=== PATIENT | female | born 1985 | race Caucasian/White ===

== ENCOUNTER 2021-01-12 20:38 | Emergency (ER) | payer OTHER, SELFPAY ==
[2021-01-12 21:06] VITALS: BP 105/57; PULSE 73; RESP 18; TEMP 36.7; O2SAT 98; BMI 21.4
[2021-01-12 21:48] LABS: Glucose Urine UA NEG (NEG); Leukocyte Esterase Urine TRACE (NEG); Nitrite Urine POS (NEG); Specific Gravity - Urine 1.025 (1.005-1.025); UACC Culture Trigger YES; Urine Blood 3+ (NEG); Urine Ketones NEG (NEG); Urine Protein 2+ MG/DL (NEG-TRACE)
[2021-01-12 21:53] LABS: Appearance Urine TURBID; Color Urine RED
[2021-01-12 22:21] LABS: Bacteria Urine 2+ /LPF; Squamous Epithelial Cell Urine TRACE /LPF
--- NOTE | 2021-01-13 00:10 | ED_ITS ---
HPI - Female Genitourinary General Chief complaint: Urogenital-Female Stated complaint: uti? Time Seen by Provider: 01/13/21 00:10 Source: patient Mode of arrival: ambulatory History of Present Illness HPI Narrative: patient is a 35-year-old female no significant past medical history who states she had sexual intercourse with a new partner [address] [facility]. She states she also has had multiple yeast infections recently which she has been treating with Diflucan but they are not going away. She states she has pain with urination, blood in her urine but denies any fevers. She is worried about having a sexually transmitted disease, she has not been tested recently for any and has had 2 partners in the last couple of weeks. Related Data Previous Rx's Medication Instructions Recorded doxycycline hyclate 100 mg PO BID 7 Days #14 tab 01/13/21 nitrofurantoin monohyd/m-cryst 100 mg PO Q12H 5 Days #10 cap 01/13/21 [Macrobid] Allergies Allergy/AdvReac Type Severity Reaction Status Date / Time No Known Allergies Allergy Unknown Verified 01/12/21 21:06 Review of Systems Review of Systems: Yes all other systems are reviewed and are negative [facility] Past Medical History Surgical History Tubal ligation status Social History Social History Advance Directives: No Advance Directives Information Provided: No Patient : No Physical Exam Vital Signs: Vital Signs: Last Vital Signs Temp 98.0 F 01/12/21 21:06 Pulse 73 01/12/21 21:06 Resp 18 01/12/21 21:06 BP 105/57 L 01/12/21 21:06 Pulse Ox 98 01/12/21 21:06 Body Mass Index 21.4 Const: General: cooperative, healthy appearing and comfortable Nutritional Appearance: average body habitus Orientation/consciousness: patient oriented x3 Limitations: no limitations Eyes: General: appearance normal, both eyes and all related structures Resp: Effort & Inspection: normal respiratory effort and able to speak in complete sentences GI: Inspection: Yes normal to inspection Palpation (GI): Soft to palpation and Tenderness to palpation present (GI) suprapubicly Neuro: General: patient oriented x3 Extrem: General: Yes normal to inspection Course Course Course Narrative: patient is a 35-year-old female no significant past medical history who states she had sexual intercourse with a new partner [address] [facility]. Patient's urine is positive for infection, will also get bacterial vaginosis panel, gonorrhea chlamydia and treat for gonorrhea and chlamydia. Rx for doxy sent to patient's pharmacy MDM - Female Genitourinary Lab Data Labs: Lab Results 01/12/21 Range/Units 21:26 Urine Color RED Urine Appearance TURBID Urine pH 6.0 (5.0-8.0) Ur Specific [place] 1.025 (1.005-1.025) Urine Protein 2+ H (NEG-TRACE) MG/DL Urine Glucose (UA) NEG (NEG) MG/DL Urine Ketones NEG (NEG) MG/DL Urine Blood 3+ H (NEG) Urine Nitrite POS H (NEG) Ur Leukocyte Esterase TRACE H (NEG) Urine RBC 76-150 H (0) /HPF Urine WBC 5-9 H (0-4) /HPF Ur Squamous Epith Cells TRACE /LPF Urine Bacteria 2+ /LPF Discharge Plan Discharge Clinical Impression: Urinary tract infection Qualifiers: Urinary tract infection type: acute cystitis Hematuria presence: with hematuria Qualified Code(s): N30.01 - Acute cystitis with hematuria Patient Disposition: Home, Self-Care Instructions: Sexually Transmitted Diseases (ED), Urinary Tract Infection in Women (ED) Additional Instructions: have tested positive for urinary tract infection, I have given your 1st dose of antibiotics in the emergency department, please pick and shovel man the remainder of your antibiotics at her pharmacy tomorrow morning. You have also been tested for bacterial vaginosis, yeast, trichimoniasis, gonorrhea, chlamydia and have been treated for gonorrhea. I have sent a prescription for doxycycline for a chlamydia infection, please take this over the pharmacy and take it for the next 7 days. Your test for bacterial vaginosis, yeast, trichomoniasis, gonorrhea and chlamydia are pending. If the results and a positive test, we will call you. If you test positive for gonorrhea or chlamydia, you will want to abstain from any sexual activity for the next 30 days. At the end of 30 days, you will want to be tested again to be sure you have cleared the disease. All of your partners to get tested for these diseases as well, again this is only if you test positive. Prescriptions: New doxycycline hyclate 100 mg tablet 100 mg PO BID 7 Days Qty: 14 RF: 0 nitrofurantoin monohyd/m-cryst [Macrobid] 100 mg capsule 100 mg PO Q12H 5 Days Qty: 10 RF: 0
[2021-01-13] MEDS: cefTRIAXone sodium 500 MG, Lidocaine HCl 1 % MPF 1 ML IM (00:30)
[2021-01-13] MEDS: Nitrofurantoin Monohyd/M-Cryst 100 MG CAPSULE PO (00:30)
[2021-01-13 04:07] LABS: CT PCR NOT DETECTED (Not Detect.); NG PCR NOT DETECTED (Not Detect.)
[2021-01-13 09:27] LABS: BV Int Neg Control Negative (Negative); BV Int Pos Control Positive (Positive)
== END 2021-01-13 01:07 | disposition home or self-care (01) ==
PROVIDERS: Physician Assistant; Emergency Provider Internal Medicine; PCP Internal Medicine
DX: N30.01 Acute cystitis with hematuria (principal)
CPT/HCPCS: 81001; 81003; 87086; 87088; 87186; 87480; 87491; 87510; 87591; 87660; 96372; 99284; J0696

== ENCOUNTER 2023-01-14 08:39 | Outpatient (RCR) | payer OTHER, SELFPAY | END 2023-01-14 23:59 | disposition home or self-care (01) | LOC: HO.PHPA 08:39 | PROVIDERS: Visit Provider Psychiatry & Neurology Psychiatry | DX: F60.3 Borderline personality disorder (principal) ==

== ENCOUNTER 2023-02-10 14:26 | Emergency (ER) | payer OTHER, SELFPAY ==
--- NOTE | ~2023-02-10 | XR_ITS ---
EXAMINATION: XR chest 2V CLINICAL INFORMATION: Reason for Exam fall, pain COMPARISON: No prior chest x-ray available in our system for comparison at the time of this dictation. TECHNIQUE: XR chest 2V Lungs and Michelle: Both lungs are clear. Pleura: Normal. Costophrenic angles are sharp. No pneumothorax. Heart: The heart is normal in size. Mediastinum: The mediastinum is within normal limits.. Bones: Skeletal structures included are normal for patient's age. XR/XR chest 2V IMPRESSION: Normal chest x-ray.
--- NOTE | ~2023-02-10 | CT_ITS ---
EXAMINATION: CT HEAD WITHOUT CONTRAST CLINICAL INFORMATION: Status post fall with loss of consciousness. COMPARISON: None available. TECHNIQUE: Contiguous axial imaging was performed from the skull base to vertex without intravenous administration of contrast. Coronal and sagittal reformatted images were obtained. This CT examination was performed using dose optimization techniques as appropriate, variously including the following: *Automated exposure control *Adjustment of mA and/or kV according to patient size (this includes techniques or standardized protocols for targeted exams where dose is matched to indication/reason for exam; i.e. extremities or head) *Use of iterative reconstruction technique DLP: 537.89 mGy-cm FINDINGS: The cortical sulci are normal. The lateral ventricles are symmetrical. The third and fourth ventricles are in their normal midline position. The basilar and prepontine cisterns are unremarkable. There is no acute intra or extracerebral abnormality. There is no mass effect or midline shift. Sections through the bony calvarium are unremarkable. The paranasal sinuses show very small left and small right interpolar fluid levels in the sphenoid sinuses. The remainder the visualized paranasal sinuses are clear. The bony orbits and orbital contents are unremarkable. CT/CT head/brain wo IV con IMPRESSION: No acute intracranial pathology.
--- NOTE | ~2023-02-10 | CT_ITS ---
EXAMINATION: CT CERVICAL SPINE WITHOUT CONTRAST CLINICAL INFORMATION: Neck pain status post fall yesterday. COMPARISON: Cervical spine radiographs dated 02/21/2007. TECHNIQUE: Multiple axial images of the cervical spine were obtained without the administration of intravenous contrast. Coronal and sagittal reformatted images were obtained. This CT examination was performed using dose optimization techniques as appropriate, variously including the following: *Automated exposure control *Adjustment of mA and/or kV according to patient size (this includes techniques or standardized protocols for targeted exams where dose is matched to indication/reason for exam; i.e. extremities or head) *Use of iterative reconstruction technique DLP: 258.02 mGy-cm FINDINGS: There is straightening of the normal cervical lordosis with normal spinal alignment. Mild degenerative disc disease is seen at C5-6 with disc space narrowing and mild to moderate marginal osteophyte formation most pronounced posteriorly. Associated mild bilateral neural foraminal narrowing is seen as well. The remainder of the neural foramina are patent. The facet joints are unremarkable. The odontoid process is intact. The spinous and transverse processes are intact. The cervical soft tissues are unremarkable. There is no lymphadenopathy. The thyroid gland is unremarkable. The visualized lung apices are clear. CT/CT cervical spine wo IV con IMPRESSION: 1. Straightening of the normal cervical lordosis may be secondary to positioning and/or muscle spasm. 2. C5-6 mild degenerative disc disease with mild bilateral neural foraminal narrowing.
[2023-02-10 15:33] VITALS: BP 124/76; PULSE 81; RESP 17; TEMP 37; O2SAT 95; BMI 22.1
--- NOTE | 2023-02-10 15:34 | ED_ITS ---
HPI - General Adult General Chief complaint: Fall Stated complaint: fell down stairs Time Seen by Provider: 02/10/23 16:05 Source: patient Mode of arrival: ambulatory Limitations: no limitations History of Present Illness HPI narrative: Patient is a 37-year-old female who presents emergency department for evaluation after mechanical fall that occurred yesterday. She states that she was walking down the stairs when she tripped, striking the right side of her head into the wall and falling down approximately 4 stairs. She reports a brief loss of consciousness for a few seconds followed by some dizziness. At this time she denies dizziness. She is currently reporting diffuse back chest and abdominal pain. Reporting midline neck pain. She states that she presented to [facility] yesterday but left without being seen due to weight times. Related Data Previous Rx's Medication Instructions Recorded doxycycline hyclate 100 mg tablet 100 mg PO BID 7 days #14 tabs 01/13/21 nitrofurantoin 100 mg PO Q12H 5 days #10 caps 01/13/21 monohydrate/macrocrystals 100 mg capsule (Macrobid) cyclobenzaprine 10 mg tablet 10 mg PO BEDTIME PRN muscle spasm 02/10/23 #10 tabs Allergies Allergy/AdvReac Type Severity Reaction Status Date / Time No Known Allergies Allergy Unknown Verified 01/12/21 21:06 Review of Systems Review of Systems: Constitutional: No fever. No chills. No weakness. No fatigue. Eye: No swelling. No redness. ENT: No sore throat. No rhinorrhea. No nasal congestion. No sore throat. No difficulty swallowing. Skin: No rash. No itching. Cardiovascular: Positive chest pain. No palpitations. No pedal edema. Respiratory: No shortness of breath. No cough. No sputum production. Gastrointestinal: No anorexia. No nausea. No vomiting. No diarrhea. Positive abdominal pain. No blood in stool. Genitourinary: No burning micturition. No urinary frequency. No incontinence. Neurologic: Positive frontal headache. No dizziness. No pre-syncope/ syncope. No unilateral weakness. No ataxia. No numbness. No tingling. No change in bowel or bladder control. Musculoskeletal: No muscle pain. Positive back pain. No joint pain. No stiffness. Hematologic: No bleeding. No bruising. Yes all other systems are reviewed and are negative [facility] Past Medical History Attestation statement: The following information was validated with the patient. Source: old records reviewed Surgical History Tubal ligation status Social History Social History Advance Directives: No Advance Directives Information Provided: No Physical Exam ED Vital Signs: Vital Signs - 24 hr 02/10/23 15:33 Temperature 98.6 F Pulse Rate 81 Respiratory Rate 17 Blood Pressure 124/76 Pulse Oximetry 95 Oxygen Delivery Method Room Air BMI result Body Mass Index 22.1 Appearance: Alert.?Oriented to person, place and time. No acute distress.?Normal affect. Head: Normocephalic atraumatic Eyes: Pupils equal, round and reactive to light.? EOMI. No nystagmus. ENT: Pharynx normal.??Dentition normal. Neck: Normal inspection.? Neck supple.??Midline cervical spine tenderness upon palpation, no palpable step-offs or deformities. Back: No palpable midline thoracic or lumbar spine tenderness, step-offs, deformities. Diffuse paraspinal muscle tenderness throughout thoracic and lumbar region. CVS: Heart sounds normal. Normal heart rate and rhythm.? Pulses normal.?? Respiratory: No respiratory distress.? Lung sounds clear to auscultation bilaterally?? Abdomen: Soft and non-tender. Normoactive bowel sounds. No pulsatile mass.?? Skin: Skin warm and dry.? Normal skin color.? ? Extremities: No lower extremity edema.? No calf ttp? Neuro: Moves all extremities spontaneously. Sensation intact bilaterally. CN II- XII intact. No focal neuro deficits. Ambulates with normal steady gait. Course Course Course Narrative: This is an RME: Additional HPI, ROS, PE not included below will be deferred to primary provider. This is a [id number] presenting to the ER with complaints of fall which occurred yesterday. . Sts that she hit her right side of her head on the side of the wall. Admits to losing consciousness for several seconds, had some dizziness afterwards. Went to [facility] but [facility] due to wait times. Reporting back pain, neck pain, chest pain, and abdominal pain. Pt has midline c-spine tenderness on examination. No hemotypananum. PERRL, EOMI Plan: CT head, CT neck ordered. Pt placed in cervical collar and taken to main ER for further eval. Medications Administered Discontinued Medications Generic Name Dose Route Start Last Admin Trade Name Alivia PRN Reason Stop Dose Admin Acetaminophen 975 mg 02/10/23 17:02 02/10/23 17:36 Acetaminophen 325 Mg Tablet PO 02/10/23 17:03 975 mg ONCE ONE Administration Medical Decision Making Medical Decision Making [facility] Narrative: Patient is a 29-year-old female past medical history of anxiety presenting to emergency department for evaluation after mechanical fall with diffuse pain as per HPI. At the time my examination she is overall well-appearing, speaking with family, and requesting something to eat and drink. A hard cervical spine collar was placed from rapid medical examination provider given midline cervical spine tenderness, there is no palpable step-offs or deformities. CT of the head and cervical spine reveals no acute abnormalities, there was notable degenerative changes of the cervical spine which patient was already aware of. Additionally obtained XR imaging of the chest this patient had reported pain after the fall, no evidence of rib fracture or pneumothorax. She was ambulatory at the time of discharge with steady gait. Speaking clear full sentences. Pain at this time most consistent with muscular nature, although we did discuss that I cannot completely exclude herniated disc. There is no indication for MRI at this time. Discussed the use of acetaminophen/ibuprofen, muscle relaxant for unrelieved pain. She has no focal neurological deficits, at this time feel that she is appropriate for discharge, symptoms consistent with concussion. Reviewed worrisome signs and symptoms that would warrant re-evaluation in the emergency department. All questions answered. Outpatient follow-up with primary care provider as needed. Differential Diagnosis Differential Diagnoses: The differential diagnosis associated with the presentation includes (ICH, SDH, cervical spine fracture, subluxation, rib fracture, pneumothorax, muscular pain) Admission/Observation Consideration of admission/observation: Escalation of care including admission/observation considered (I considered admission for head injury with loss of consciousness. See narrative above.) Independent Interpretation I performed an independent interpretation of an: Plain X-Ray (I personally interpreted chest x-ray and agree with radiologist impression, pneumothorax, no acute rib fracture.) Radiology Impression Discussion of test interpretation with radiology: I have reviewed the radiologist's reading. Radiologist Impression: CT/CT head/brain wo IV con IMPRESSION: No acute intracranial pathology. CT/CT cervical spine wo IV con IMPRESSION: 1.? Straightening of the normal cervical lordosis may be secondary to positioning and/or muscle spasm. 2.? C5-6 mild degenerative disc disease with mild bilateral neural foraminal narrowing. XR/XR chest 2V IMPRESSION: Normal chest x-ray. ? Independent Historian Clinical information obtained from an independent historian. History obtained from or confirmed by: Other (Multiple family members present at bedside who confirm history) Prescription Management I considered prescription management with: Pain Medication Discharge Plan Discharge Clinical Impression: Concussion with loss of consciousness, Cervical muscle strain Patient Disposition: Home, Self-Care Instructions: Cervical Strain (ED), Concussion (ED), Post Concussion Syndrome (ED) Additional Instructions: The CT imaging of your head was normal today. The CT imaging of your neck did not show any acute fracture which is reassuring, as discussed there are degenerative/arthritic changes which she were already aware of. The x-ray of your chest did not reveal any fracture of the ribs. You can take ibuprofen 200 mg, 3 tablets (600mg) every 6-8 hours as needed for pain, in addition to Tylenol 500 mg, 2 tablets (1,000mg) every 4-6 hours as needed for pain, but not to exceed 3 doses daily (3,000mg).? For pain that is unrelieved by ibuprofen and Tylenol, I have sent a prescription for a muscle relaxer to your pharmacy. Cyclobenzaprine/Flexeril, this medication may make you drowsy. You should not drive, drink alcohol, or work while taking this medication. Please follow-up with your primary care provider within 3 days. You may return back to emergency department any new or worsening symptoms or concerns. Prescriptions: New cyclobenzaprine 10 mg tablet 10 mg PO BEDTIME PRN (Reason: muscle spasm) Qty: 10 0RF No Action doxycycline hyclate 100 mg tablet 100 mg PO BID 7 Days Qty: 14 0RF nitrofurantoin monohyd/m-cryst [Macrobid] 100 mg capsule 100 mg PO Q12H 5 Days Qty: 10 0RF Rx Instructions: must administer with a meal/food Referrals: Physician,Unknown J [Primary Care Provider] - Interventions: ED Discharge Assessment Last Done: 02/10/23 19:20 Discharge Date/Time: 02/10/23 19:20
[2023-02-10] MEDS: Acetaminophen 325 MG TABLET 975 MG PO (17:36)
== END 2023-02-10 19:20 | disposition home or self-care (01) ==
PROVIDERS: Emergency Provider Internal Medicine
DX: S06.0X9A Concussion with loss of consciousness of unspecified duration, initial encounter (principal); S16.1XXA Strain of muscle, fascia and tendon at neck level, initial encounter; R51.9 Headache, unspecified; R07.89 Other chest pain; M54.2 Cervicalgia; W10.9XXA Fall (on) (from) unspecified stairs and steps, initial encounter; Y93.9 Activity, unspecified; Y92.9 Unspecified place or not applicable; Y99.9 Unspecified external cause status; Z79.899 Other long term (current) drug therapy
CPT/HCPCS: 70450; 71046; 72125; 99283; 99284

== ENCOUNTER → 2023-02-17 10:00 | Outpatient (BNV) | payer OTHER, SELFPAY | PROVIDERS: Visit Provider Psychiatry & Neurology Psychiatry | DX: F32.9 Major depressive disorder, single episode, unspecified (principal) | CPT/HCPCS: 99212; 99213; 99214 ==

== ENCOUNTER 2023-03-04 09:00 | Outpatient (RCR) | payer OTHER, SELFPAY ==
[2023-02-16 11:50] VITALS: BMI 22.5
[2023-02-16 11:51] VITALS: BP 103/70; PULSE 76; TEMP 36.9
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
--- NOTE | 2023-02-17 14:15 | P.HPPSP_ITS ---
[facility] Date of Service: 02/17/23 Chief Complaint: depression, PTSD and substance use disorder Sources of Information: patient interviewed and chart reviewed [facility] Medical Problems Affecting Mental Status: No Narrative: Patient presents to the partial hospital program starting 03-09 in the context of therapist referral for increased depression, increased PTSD symptoms, cocaine and alcohol use. Passive thoughts of and agitation towards boyfriends. Medications are Celexa 40 mg, Lamictal 200 mg and melatonin 3 mg. Today reports her main goal is learning coping skills, getting a better sense of what is happening and sobriety long-term. Has noticed that her mood has been lower in recent months, with feeling sad, isolating, passive thoughts of , guilt, irritability. No active SI. No psychosis. Does get frustrated and can get aggressive with her boyfriend. Sleep has been okay. Appetite okay. Has been getting increased PTSD symptoms of flashbacks, memories and triggers. Regarding cocaine and alcohol has not used any in 2 weeks. Prior to that at the beginning of this year was utilizing those excessively around once per week but in the few months a lot less. Does have a sober period of 1 year approximately 8 years ago. Also describes diagnosis of borderline personality disorder. Discussed medications and has been on these for a number of years through primary care provider without dose changes. Reports they have been helpful. Has a therapist through [facility] counseling [place]. We discussed options of either 1 increasing Lamictal, 2 adding Effexor for augmentation for depression and PTSD or 3 adding buspirone primarily for depression. Patient preferred Effexor. Risks and benefits discussed including withdrawal type symptoms, high blood pressure etc. We will start at 150 mg and prescription sent to [facility] in [place]. We will continue medications through primary care provider after discharge from partial hospital program. Patient may ask for referral for a psychiatry prescriber through [facility] counseling therapist. Maintain Celexa 40 mg, Lamictal 200 mg and melatonin 3 mg. Past Psychiatric History: No previous admissions. Celexa, Lamictal and m elatonin for a number of years through primary care provider without any recent dose changes. Previously tried Zoloft. Reports having mood symptoms since a teenager. Diagnosis of borderline personality disorder, depression and PTSD. History of cutting, last time was 7 years ago. One overdose attempt around 7 years ago which was impulsive in nature. FOR[facility]LY [facility], [facility] Medical History (Updated 02/17/23 @ 14:25 by Raymond Diallo MD) History of concussion IBS (irritable bowel syndrome) Tourette syndrome Surgical History Tubal ligation status Social History: Living with boyfriend of 12 years. 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 She has a 16-year-old that lives with her. A 22-year-old that is living outside of the home with the patient's ex-boyfriend for the last 3 years. No legal issues. GED and some community college in the context of becoming and dropping out. 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 Substance History: Cocaine and alcohol use disorder. History of 1 year sobriety approximately 8 years ago. This year has been using heavily around once per week, but much less in recent months. Trauma History: Yes Diagnostics Vital Signs (24Hr): BMI result Body Mass Index 22.5 Meds/Allergies Meds Home Medications Medication Instructions Recorded Confirmed Type citalopram 40 mg tablet 40 mg PO DAILY depressive disorder 02/16/23 02/16/23 History lamotrigine 200 mg tablet 200 mg PO DAILY 02/16/23 02/16/23 History melatonin 3 mg tablet 3 mg PO BEDTIME PRN Insomnia 02/16/23 02/16/23 History Allergies Allergies Allergy/AdvReac Type Severity Reaction Status Date / Time No Known Allergies Allergy Unknown Verified 01/12/21 21:06 Mental Status Exam Mental Status Exam Narrative: Pleasant. Engaged. Fairly presented. Organized. Dysthymic. No SI. No HI. No agitation. No psychosis. Insight and judgment good Telehealth Telehealth Location of provider rendering services: other ([facility]) Location of patient: other ([facility]) Patient Identification confirmed using: Name, : Yes Telehealth method: video Patient verbally consented to treatment: Yes Minutes spent on Phone/Video with Pt.: 30 Assessment & Plan Assessment & Plan (1) Major depression: Status: Acute Code(s): F32.9 - Major depressive disorder, single episode, unspecified (2) PTSD (post-traumatic stress disorder): Status: Acute Code(s): F43.10 - Post-traumatic stress disorder, unspecified Plan Presents with worsening of major depression and PTSD symptoms, despite less substance use recently along with background history of borderline personality disorder. Is an established therapy. Has been on current medication regimen for a number of years. Discussed medications and has been on these for a number of years through primary care provider without dose changes. Reports they have been helpful. Has a therapist through [facility]. We discussed options of either 1 increasing Lamictal, 2 adding Effexor for augmentation for depression and PTSD or 3 adding buspirone primarily for depression. Patient preferred Effexor. Risks and benefits discussed including withdrawal type symptoms, high blood pressure etc. We will start at 150 mg and prescription sent to [facility] in [place]. We will continue medications through primary care provider after discharge from partial hospital program. Patient may ask for referral for a psychiatry prescriber through [facility] therapist. Maintain Celexa 40 mg, Lamictal 200 mg and melatonin 3 mg. Patient educated on: diagnosis, medication risk/benefits and therapeutic strategies Informed Consent: understands Reason for continued partial hosp. stay Substantial Risk for: inability to function Certification I certify that partial hospital treatment is medically necessary due to the symptoms and problems resulting from the patient's mental illness and the failure to treat the patient at the partial hospital level of care would likely result in the patient requiring inpatient psychiatric care which could not be prevented at a less intensive level of care. Time Spent With Patient Time: Total time managing care of this patient today _60___ minutes.
--- NOTE | 2023-02-17 15:46 | HO.PHP ---
Clients case was reviewed and opened today in treatment team.
--- NOTE | 2023-02-24 17:11 | HO.PHP ---
[facility] staff faxed over the referral for psychiatry to [facility] and is awaiting on a call for a scheduled date and time. [facility] staff informed La as well that the referral was placed in case they contact her.
--- NOTE | 2023-02-25 09:40 | HO.PHPPROGNO ---
Subjective Subjective Date of Service: 02/25/23 Reason For Visit: depression, PTSD and substance use disorder Healthcare Proxy: No Guardianship: No Medical Problems Affecting Mental Status: No Interim History: La is seen for follow-up during her partial loss [employer] engagement. She was seen by Dr. Diallo. She is here for worsening of her PTSD symptoms, depression, anxiety. She has been on Lamictal 200 mg, Celexa 40 mg, melatonin 3 mg and he added Effexor XR 150 mg which she only started yesterday. She denies any side effects. She was educated about the importance of having adequate supply and not stopping it abruptly. She will be going to [facility] and will have a prescriber but for the meantime her PCP is prescribing her medications. She has enough supplies. Several questions about alternatives which was discussed with Dr. Diallo discussed today and questions were answered. Medication Compliance: Yes Side effects from medications: No Attending Groups: Yes Review of Systems Review of Systems Yes all other systems are reviewed and are negative Mental Status Exam Mental Status Exam Narrative: In today's visit she is alert, oriented and pleasant. Normal speech. Good eye contact. Appropriate affect. No overt signs of depression. No signs of psychosis. No SI/HI. Cognitively intact. Judgment is intact Diagnostics Vital Signs (24Hr): BMI result Body Mass Index 22.5 Assessment & Plan Assessment & Plan (1) PTSD (post-traumatic stress disorder): Status: Acute Code(s): F43.10 - Post-traumatic stress disorder, unspecified Plan Continue current regimen of Lamictal, Celexa, melatonin and the new addition of Effexor XR. Down the road if the Effexor has been moderately helpful or more she may decrease her Celexa. She is going to and the program here next week and will follow-up at [facility] Patient educated on: diagnosis and medication risk/benefits Certification I certify that partial hospital treatment is medically necessary due to the symptoms and problems resulting from the patient's mental illness and the failure to treat the patient at the partial hospital level of care would likely result in the patient requiring inpatient psychiatric care which could not be prevented at a less intensive level of care. Total time managing care of this patient today ____ minutes. Discharge Plan Discharge Attending provider: Travis Madden Medications: Continued venlafaxine 150 mg Capsule,Extended Release 24hr 150 mg PO DAILY 30 Days Qty: 30 0RF No Action cyclobenzaprine 10 mg tablet 10 mg PO BEDTIME PRN (Reason: muscle spasm) Qty: 10 0RF lamotrigine 200 mg tablet 200 mg PO DAILY citalopram 40 mg tablet 40 mg PO DAILY melatonin 3 mg Tablet 3 mg PO BEDTIME PRN (Reason: Insomnia) Stand Alone Forms: Patient Portal Discharge page Patient Education: Venlafaxine (By mouth)
[2023-02-28 15:05] LABS: Amphetamine Screen Urine Not Detected (Not Detect); Barbiturates, Urine Not Detected (Not Detect); Benzodiazepines Screen Urine Not Detected (Not Detect); Cannabinoid Screen Urine Not Detected (Not Detect); Cocaine Screen Urine Not Detected (Not Detect); Fentanyl, urine Not Detected (Not Detect); Opiate Screen Urine Not Detected (Not Detect); Phencyclidine Screen Urine Not Detected (Not Detect)
--- NOTE | 2023-03-04 10:48 | P.PNPSP_ITS ---
Subjective Subjective Date of Service: 03/04/23 Reason For Visit: depression, PTSD and substance use disorder Interim History: La is seen for follow-up prior to her discharge from this program. She states that the program has been very helpful to her, ?more than what I had expected close?. She has been taking the addition of Effexor XR [address] Diallo since 02/24. She can safe it has been helpful but she is open ?over thinking?. No physical restlessness. She is not very uncomfortable with the over thinking but I suggested taking 75 mg and instructed her on how to do this with her 150 mg capsules. She does not have an appointment with her outpatient provider but will make 1. She has enough of her Lamictal and Celexa. She will continue her therapy Medication Compliance: Yes Side effects from medications: Yes (Over thinking on Effexor) Review of Systems Review of Systems Over thinking Yes all other systems are reviewed and are negative Mental Status Exam Mental Status Exam Narrative: In today's visit she is alert, oriented and pleasant. Normal speech. Good eye contact. Appropriate affect. No overt signs of depression. No signs of psychosis. No SI/HI. Cognitively intact. Judgment is intact Diagnostics Vital Signs (24Hr): BMI result Body Mass Index 22.5 Assessment & Plan Assessment & Plan (1) Major depression: Status: Acute Code(s): F32.9 - Major depressive disorder, single episode, unspecified Plan Ending the program today. She will continue Lamictal, Celexa and Effexor XR 75- 150 mg Patient educated on: diagnosis and medication risk/benefits Guardian/Caregiver educated on: medication risk/benefits Certification I certify that partial hospital treatment is medically necessary due to the symptoms and problems resulting from the patient's mental illness and the failure to treat the patient at the partial hospital level of care would likely result in the patient requiring inpatient psychiatric care which could not be prevented at a less intensive level of care. Total time managing care of this patient today ____ minutes. Discharge Plan Discharge Attending provider: Travis Madden Medications: Continued venlafaxine 150 mg Capsule,Extended Release 24hr 150 mg PO DAILY 30 Days Qty: 30 0RF No Action cyclobenzaprine 10 mg tablet 10 mg PO BEDTIME PRN (Reason: muscle spasm) Qty: 10 0RF lamotrigine 200 mg tablet 200 mg PO DAILY citalopram 40 mg tablet 40 mg PO DAILY melatonin 3 mg Tablet 3 mg PO BEDTIME PRN (Reason: Insomnia) Stand Alone Forms: Patient Portal Discharge page Patient Education: Venlafaxine (By mouth)
--- NOTE | 2023-03-04 15:47 | PC.NURSE ---
Patient discharged from [facility] on 03/04/2023. Discharge routine. Discharge to out patient providers. Patient states she is ready for discharge, denies HI/SI with no plan, no intent. Discharge plan including discharge medications reviewed with patient who verbalized understanding. Copy of discharge plan and discharge medication list given to patient. Copy of discharge medication list sent to out patient provider.
--- NOTE | 2023-03-08 09:45 | HO.PHP ---
[facility] staff received a returned phone call from La regarding continuing in [facility] treatment for substance use. [facility] staff member noted that Heidi had contacted Ginette from [facility] and provided her with information regarding La's situation. [facility] staff member provided La with Ginette's phone number so she can complete the intake. [facility] staff encouraged La to contact the clinician back if she needs further support. La was receptive.
== END 2023-03-04 23:59 | disposition home or self-care (01) ==
LOC: HO.PHPA 09:00
PROVIDERS: Psychiatry & Neurology Psychiatry; Visit Provider Psychiatry & Neurology Psychiatry
DX: F32.9 Major depressive disorder, single episode, unspecified (principal); F43.10 Post-traumatic stress disorder, unspecified; Z79.899 Other long term (current) drug therapy
CPT/HCPCS: 80307; 90791; 90853

== ENCOUNTER 2023-05-27 08:45 | Outpatient (RCR) | payer OTHER, SELFPAY ==
[2023-05-27 10:34] VITALS: BP 109/70; PULSE 77; TEMP 37
[2023-05-27 10:35] VITALS: BMI 22.1
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
--- NOTE | 2023-06-01 09:00 | HO.PHP ---
The administrative technician received a VM from La stating she will not be attending program due to her child not feeling well and she needs to take them to an appointment. La noted she is safe.
--- NOTE | 2023-06-01 17:14 | HO.PHP ---
PHP staff member reached out to La to inform her that we will be administratively discharging her due to her attendance. PHP staff member provided the information in the discharge summary around the conversation held. La was in agreement to discharging and will contact [facility] to complete a new intake to enroll when she is feeling ready. OP provider information was collected and La noted she is safe.
== END 2023-05-27 23:59 | disposition home or self-care (01) ==
LOC: HO.PHPA 08:45
PROVIDERS: Visit Provider Psychiatry & Neurology Psychiatry
DX: F43.10 Post-traumatic stress disorder, unspecified (principal); F33.9 Major depressive disorder, recurrent, unspecified; F14.21 Cocaine dependence, in remission
CPT/HCPCS: 90791; 90853

== ENCOUNTER → 2023-05-27 08:45 | Outpatient (BNV) | payer OTHER, SELFPAY | PROVIDERS: Visit Provider Psychiatry & Neurology Psychiatry | DX: F33.2 Major depressive disorder, recurrent severe without psychotic features (principal); F14.21 Cocaine dependence, in remission; F43.11 Post-traumatic stress disorder, acute | CPT/HCPCS: 99214 ==

== ENCOUNTER → 2023-06-22 08:30 | Outpatient (BNV) | payer OTHER, SELFPAY | PROVIDERS: Visit Provider Psychiatry & Neurology Psychiatry | DX: F31.81 Bipolar II disorder (principal); R41.840 Attention and concentration deficit; F43.10 Post-traumatic stress disorder, unspecified; F95.2 Tourette's disorder; F14.21 Cocaine dependence, in remission | CPT/HCPCS: 99212; 99213; 99214 ==

== ENCOUNTER 2023-07-05 08:45 | Outpatient (RCR) | payer OTHER, SELFPAY ==
[2023-06-21 11:46] VITALS: BP 101/65; PULSE 89; TEMP 37.2
[2023-06-21 11:48] VITALS: BMI 22.7
--- NOTE | 2023-06-21 12:30 | PC.ADMIT ---
Patient is a 37 year old single female who self referred back to [facility] d/t increased depression, anger, and anxiety. Reports conflicted about ending a relationship of 13 years as she continues to see her ex however does not feel she is getting what she wants out of the relationship. She reports he cheated on her and started cutting herself a month ago as a result. She wants more support and coping skills. She also has a long history of cocaine use and ETOH use. Patient reports binge drinking and cocaine use on the weekends. She reports last use of cocaine in January 2023 and using ETOH once a month 1-2 shots. La said she is interested in a head athletic trainer/strength coach for more support. She called Chanel head athletic trainer/strength coach in my office and left Nick a message letting him know she is interested in a head athletic trainer/strength coach. She reports she attends AA meetings a few times a week and has a sponsor who goes to meetings with her. Patient is alert and oriented x4. Calm and cooperative. Presented with depressed mood and anxious affect. Denied SI. I gave La a copy of her safety plan if needed. Medications reconciled with patient and patient's pharmacy. She reports taking medications as prescribed.
[2023-06-21 14:58] LABS: Amphetamine Screen Urine Not Detected (Not Detect); Barbiturates, Urine Not Detected (Not Detect); Benzodiazepines Screen Urine Not Detected (Not Detect); Cannabinoid Screen Urine Not Detected (Not Detect); Cocaine Screen Urine Not Detected (Not Detect); Fentanyl, urine Not Detected (Not Detect); Opiate Screen Urine Not Detected (Not Detect); Phencyclidine Screen Urine Not Detected (Not Detect)
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
--- NOTE | 2023-06-23 18:45 | HO.PHP ---
The client's case was reviewed and opened in treatment team.
--- NOTE | 2023-06-28 21:30 | P.PNPSP_ITS ---
Subjective Subjective Date of Service: 06/28/23 Reason For Visit: mood disorder, ptsd, borderline personality d/o Medication Compliance: Yes Side effects from medications: No Attending Groups: Yes Review of Systems Acute medical concerns: No Patient seen today for follow-up. No acute issues or concerns. La reports taking the new medication, I think it's working . She has been taking a whole 2 mg tablet of Abilify, feels more settled and says she has been able to pay attention more, particularly in groups. She denies any adverse effects. She says she occasionally still zones out (dissociates) but less often. She reports her mood seems a lot better and her irritability has improved since lowering the dose of venlafaxine (from 75 to 37.5 mg). She reports depression rated at a 4 out of 10 in severity (was previously at an 8 out of 10 prior to lowering the venlafaxine). She denies any hopelessness or SI. Mental Status Exam Mental Status Exam Narrative: Alert, oriented, in no acute distress. Casually dressed. Hygiene, grooming good. Facial tics/grimacing on L, q 2-10 min, no tremors, no psychomotor agitation or neurovegetative signs. Pleasant, calm, cooperative. Forthcoming. Good eye contact. Mood anxious. Affect variable, bright, otherwise mood congruent, reactive. No tearfulness or lability. Speech regular, without latency or pressure. No evidence of thought disorder. Thought content without paranoid or delusional content. No SI or HI on inquiry. No perceptual disturbance. Cognition grossly intact. Attention adequate. Impulsivity low. Sensorium clear. Judgment and insight fair but adequate. Diagnostics Vital Signs (24Hr): BMI result Body Mass Index 22.7 Assessment & Plan Assessment & Plan (1) Moderate bipolar II disorder, depressed, in partial remission, with mixed features: Status: Acute Code(s): F31.81 - Bipolar II disorder (2) Attention and concentration deficit: Status: Acute Code(s): R41.840 - Attention and concentration deficit (3) Tourette syndrome: Status: Acute Code(s): F95.2 - Tourette's disorder (4) PTSD (post-traumatic stress disorder): Status: Acute Code(s): F43.10 - Post-traumatic stress disorder, unspecified (5) Cocaine use disorder, moderate, in early remission: Status: Acute Code(s): F14.21 - Cocaine dependence, in remission Plan increase Abilify to 5 mg qd continue venlafaxine ER 37.5 mg for 4 more days then discontinue (or take q other day if experience seratonin w/d sx) continue lamotrigine 200 mg qd Patient educated on: diagnosis and medication risk/benefits Informed Consent: understands Reason for contiued partial hosp. stay Substantial Risk for: rapid decompensation and med/psych decompensation Certification I certify that partial hospital treatment is medically necessary due to the symptoms and problems resulting from the patient's mental illness and the failure to treat the patient at the partial hospital level of care would likely result in the patient requiring inpatient psychiatric care which could not be p revented at a less intensive level of care. Total time managing care of this patient today __30__ minutes. Discharge Plan Discharge Attending provider: Chelsea Valdez Medications: New venlafaxine 37.5 mg capsule,extended release 24hr 37.5 mg PO DAILY Qty: 14 0RF aripiprazole 5 mg tablet 5 mg PO DAILY Qty: 30 0RF Continued loratadine 10 mg tablet 10 mg PO DAILY melatonin 5 mg Tablet 5 mg PO BEDTIME PRN (Reason: insomna) lamotrigine 200 mg tablet 200 mg PO DAILY Discontinued venlafaxine 75 mg capsule,extended release 24hr 75 mg PO DAILY
--- NOTE | 2023-07-03 09:06 | HO.PHPPROGNO ---
Subjective Subjective Date of Service: 07/01/23 Reason For Visit: mood disorder, ptsd, borderline personality d/o Interim History: Patient seen today for follow-up. No acute concerns or issues. She reports having a lot going on right now , In the interim she broke it off with her BF of 13 years, they have a volatile history and although she feels conflicted about it, she says she relaizes it is not a healthy relationship and is ready to move on from it. She had been repeatedly asking him to come collect his things from the apartment, but he has not. She suspects he was hoping to wait it out. She ended up packing up his stuff and dropping it off at donations. When asked about any potential safety concerns, she says she doesn't think so. She has spoken to him a few times and he is mostly just feeling sorry for himself and trying not to alienate her. She is now at 5 mg of ABilify. She noticed some mild headaches upon initiating the Abilify which returned when she bumped the dose to 5 mg. She says they are mostly better again. She feels that her mood is more stable, at least there is less irritability and that her anger is I think it is a little better . She says any residual irritability now is just mostly related to caregiver fatigue. (She takes care of neighborhood kids as well as her kid's friends). Her main complaint is related to focus and concentration. She says she still spends a lot of time spacing out in groups and finds it difficult to pay attention especially during conversations or during tasks that require focus. Her anxiety is deemed to be better, and she does not endorse derealization/depersonalization. I do not get the impression that these issues are dissociative in nature given the context of occurrance and lack of disorientation or triggering events. She relays these attentional issues are chronic , long standing issues. Yesterday was the last dose of venlafaxine taper, and would be a reasonable time to start on a non-stimulant option to address any attentional deficits. We discussed atemoxetine and have chosen to start this, given patient has history of Tourettes, and Wellbutrin (and/or any stimulant medication) has the propensity to worsen tics. Sleep, appetite and energy are variable but stable. Soem impulse control issues may be improving she says. She denies any aggressive ideation. Mood is sad about break-up still but overall is managing this well. Denies any SI or thoughts of harming herself or others. Medication Compliance: Yes Side effects from medications: No Attending Groups: Yes Review of Systems Acute medical concerns: No Mental Status Exam Mental Status Exam Narrative: Alert, oriented, in no acute distress. Casually dressed. Hygiene, grooming good. Facial tics/grimacing improved (x1), no tremors, no psychomotor agitation or neurovegetative signs. Pleasant, calm, cooperative. Forthcoming. Good eye contact. Mood more stable less anxious. Affect brighter, mood congruent, reactive, no tearfulness or lability. Speech regular, without latency or pressure. No evidence of thought disorder. Thought content without paranoid or delusional content. No SI or HI on inquiry. No perceptual disturbance. Cognition grossly intact. Attention adequate. Impulsivity low. Sensorium clear. Judgment and insight fair but adequate. Diagnostics Vital Signs (24Hr): BMI result Body Mass Index 22.7 Assessment & Plan Assessment & Plan (1) Moderate bipolar II disorder, depressed, in partial remission, with mixed features: Status: Acute Code(s): F31.81 - Bipolar II disorder (2) Attention and concentration deficit: Status: Acute Code(s): R41.840 - Attention and concentration deficit (3) PTSD (post-traumatic stress disorder): Status: Acute Code(s): F43.10 - Post-traumatic stress disorder, unspecified (4) Tourette syndrome: Status: Acute Code(s): F95.2 - Tourette's disorder (5) Cocaine use disorder, moderate, in early remission: Status: Acute Code(s): F14.21 - Cocaine dependence, in remission Plan Start atemoxetine 18 mg daily in AM continue Abilify 5 mg qd continue other regular medications continue to monitor as per protocol Patient educated on: diagnosis, medication risk/benefits and substance abuse Informed Consent: understands Reason for contiued partial hosp. stay Substantial Risk for: med/psych decompensation Certification I certify that partial hospital treatment is medically necessary due to the symptoms and problems resulting from the patient's mental illness and the failure to treat the patient at the partial hospital level of care would likely result in the patient requiring inpatient psychiatric care which could not be prevented at a less intensive level of care. Total time managing care of this patient today __30__ minutes. Discharge Plan Discharge Attending provider: Chelsea Valdez Medications: New aripiprazole 5 mg tablet 5 mg PO DAILY Qty: 30 0RF atomoxetine [Strattera] 18 mg capsule 36 mg PO QAM Qty: 30 0RF Rx Instructions: take 1 capsule daily in AM for one week, then increase to 2 capsules daily Continued loratadine 10 mg tablet 10 mg PO DAILY melatonin 5 mg Tablet 5 mg PO BEDTIME PRN (Reason: insomna) lamotrigine 200 mg tablet 200 mg PO DAILY Discontinued venlafaxine 75 mg capsule,extended release 24hr 75 mg PO DAILY
--- NOTE | 2023-07-04 09:52 | HO.PHP ---
PHP staff member received a call from La, stating that she is unable to attend program today due to her daughter being sick. La voiced that it was supposed to be her last day. PHP staff member disclosed that she can come tomorrow to complete her last day of program. La expressed that should be okay, she will just need to have her mother find a ride to her appointment. PHP staff member was receptive and explored if La is safe. La reported no concerns around SI,plan or intent and stated she will be here tomorrow. PHP staff member was in agreement.
--- NOTE | 2023-07-05 21:23 | HO.PHPPROGNO ---
Subjective Subjective Date of Service: 07/05/23 Reason For Visit: mood disorder, ptsd, borderline personality d/o Interim History: Patient seen for follow-up. She anticipates discharge at the end of the program today. She denies any acute issues or concerns. She moved the atemoxetine to the evening, because taking it in the morning was causing her some grogginess, and was experiencing some hypervigilence due to feeling slowed down. She says she has been taking it in the evening now and is doing better, also is sleeping better with it at night. She reports some modest changes, feeling it is helped with racing thoughts, slowed down enough so she could start to think more clearly. SHe is optimistic and is hoping for further increase, however given that she is slated for discharge today, she will have to pick further titration with her outpatient provider who can monitor her for benefit/changes or any potential adverse effects. She is tolerating Abilify which is at 5 mg daily, she reports being stable, lability, irritability are much better. She says she missed taking the medication over padmini weekend and did experience some passive SI yesterday (says it was transitory and denies any intention or plan). She says it was more related to anxiety about leaving the program. She says she also realized that the medication helps because she hadn't had any SI recently prior to that. She will be starting DBT program and has an intake appointment on Tuesday. She shares feeling conflicted about this. SHe feels perhaps pursuing substance abuse treatment would be more beneficial at this time, and says she is trying to reach out to [facility] to see about availability and explore these options, also she wants to be able to continue working with her outpatient therapist, but was told she wont be able to while she is at the DBT program. She has appointment this week with her therapist and says she will discuss this further with her on . Medication Compliance: Yes Side effects from medications: No Attending Groups: Yes Review of Systems Acute medical concerns: No Mental Status Exam Mental Status Exam Narrative: Alert, oriented, in no acute distress. Calm, cooperative, pleasant. Facial tics/grimacing a few times. Good eye contact. Mood anxious, denies lability. Affect brighter, full range, reactive, no lability. Speech regular, without latency or pressure. No evidence of thought disorder. Thought content without paranoid or delusional content. No SI or HI on inquiry. No perceptual disturbance. Cognition grossly intact. Sensorium clear. Judgment and insight intact. Diagnostics Vital Signs (24Hr): BMI result Body Mass Index 22.7 Assessment & Plan Assessment & Plan (1) Moderate bipolar II disorder, depressed, in partial remission, with mixed features: Status: Acute Code(s): F31.81 - Bipolar II disorder (2) PTSD (post-traumatic stress disorder): Status: Acute Code(s): F43.10 - Post-traumatic stress disorder, unspecified (3) Tourette syndrome: Status: Acute Code(s): F95.2 - Tourette's disorder (4) Attention and concentration deficit: Status: Acute Code(s): R41.840 - Attention and concentration deficit (5) Cocaine use disorder, moderate, in early remission: Status: Acute Code(s): F14.21 - Cocaine dependence, in remission Plan Discharge from [facility] continue current medications: Abilify 5 mg qd Lamictal 200 mg qd Strattera 18 mg qd (limit to 4-5x/wk, hold for overactivation) will offer 2 mg Abilify as PRN contiue loratadine, melatonin Will defer ongoing medicaiton management to outpatient provider Patient is waiting to hear back from psych provider Bhavik Lo regarding her next appointment. Next therapy appointment is Jul 07 at noon. Reason for contiued partial hosp. stay Substantial Risk for: stable for discharge Certification I certify that partial hospital treatment is medically necessary due to the symptoms and problems resulting from the patient's mental illness and the failure to treat the patient at the partial hospital level of care would likely result in the patient requiring inpatient psychiatric care which could not be prevented at a less intensive level of care. Total time managing care of this patient today ____ minutes. Discharge Plan Discharge Attending provider: Chelsea Valdez Additional Instructions: La has an OP therapist, Thom, through [facility]. La stated her next scheduled appointment is on July 07, 2023 at 12 PM. La has a med provider, Bhavik Lo, through [facility]. La's next scheduled appointment is on July 07, 2023 at 2:40 PM. Medications: New aripiprazole 5 mg tablet 5 mg PO DAILY Qty: 30 0RF aripiprazole 2 mg tablet 2 mg PO DAILY PRN (Reason: as directed) Qty: 14 0RF Rx Instructions: in addition to 5 mg tablet (= 7mg/day) Continued loratadine 10 mg tablet 10 mg PO DAILY melatonin 5 mg Tablet 5 mg PO BEDTIME PRN (Reason: insomna) lamotrigine 200 mg tablet 200 mg PO DAILY Changed atomoxetine [Strattera] 18 mg capsule 18 mg PO QAM Qty: 14 0RF Rx Instructions: take 1 capsule daily in AM for one week, then increase to 2 capsules daily Discontinued venlafaxine 75 mg capsule,extended release 24hr 75 mg PO DAILY Stand Alone Forms: Patient Portal Discharge page Patient Education: Depression (DC)
== END 2023-07-05 23:59 | disposition home or self-care (01) ==
LOC: HO.PHPA 08:45
PROVIDERS: Visit Provider Psychiatry & Neurology Psychiatry
DX: F31.81 Bipolar II disorder (principal); F43.10 Post-traumatic stress disorder, unspecified; F95.2 Tourette's disorder; R41.840 Attention and concentration deficit; F14.21 Cocaine dependence, in remission; Z79.899 Other long term (current) drug therapy
CPT/HCPCS: 80307; 90791; 90853

== ENCOUNTER 2025-02-13 17:16 | Emergency (ER) | payer OTHER, SELFPAY ==
--- NOTE | ~2025-02-13 | CT_ITS ---
CLINICAL HISTORY: diverticulitis CT abdomen and pelvis with contrast Comparison: None provided Findings: The lung bases are clear. Unremarkable gallbladder and solid organs. No urolithiasis. No bowel obstruction, pneumoperitoneum, or pneumatosis. No evidence of diverticulitis. Appendix is not visualized but there are no pericecal inflammatory changes. Rim enhancing fluid in the vagina may be normal fluid with surrounding mucosal enhancement versus abscess (best seen on sagittal image 65/129 and 68/129). Bilateral ovarian cysts measuring up to 1.6 cm on the right. Trace free fluid in the pelvis. No acute fracture. IMPRESSION: Rim enhancing fluid in the vagina may be normal fluid with surrounding mucosal enhancement versus abscess (best seen on sagittal image 65/129 and 68/129). No evidence of diverticulitis. This document has been electronically signed by: Katarina Yu MD on 02/13/2025 23:41:56
--- NOTE | 2025-02-13 17:19 | ECG_ITS ---
Test Reason : chest pain Blood Pressure : */* mmHG Vent. Rate : 81 BPM Atrial Rate : 81 BPM P-R Int : 170 ms QRS Dur : 84 ms QT Int : 324 ms P-R-T Axes : 70 80 67 degrees QTcB Int : 376 ms Normal sinus rhythm Nonspecific T wave abnormality Abnormal ECG When compared with ECG of 20-May-2004 14:03, Nonspecific T wave abnormality now evident in Inferior leads Nonspecific T wave abnormality now evident in Anterolateral leads Referred By: George Pierce Electronically Signed By: JOSEF BARONE MD
[2025-02-13 17:56] VITALS: BP 113/56; PULSE 84; RESP 16; TEMP 35.9; O2SAT 97; BMI 22.9
--- NOTE | 2025-02-13 17:56 | ED.GENADULT ---
HPI - General Adult General Chief complaint: Abdominal Pain Stated complaint: chest/back/abd pain, vomitting Time Seen by Provider: 02/13/25 20:51 Source: patient Limitations: no limitations History of Present Illness ED Provider: Yamel Armstrong PA-C HPI narrative: 39 year-old female with pmhx of ADHD, mood disorder, bipolar II disorder, tourette syndrome, cocaine use disorder, PTSD, and major depression who presents to the ED with multiple concerns. She states she has been having chest pain, SOB, low back pain, heartburn, bloating and abdominal pain that has been occurring on and off for 1 month. She describes the chest pain as burning and states the SOB only occurs with the chest pain. She reports 2 episodes of diarrhea since Tuesday. She is able to pass flatulence but states she does not have much. Denies vomiting, fever, chills, blood in stool, blood in urine. Denies recent hospitalization, use of antibiotics or travel. No sick contacts with similar symptoms. Related Data Home Medications ?Medication ?Instructions ?Recorded ?Confirmed lamotrigine 200 mg tablet 200 mg PO DAILY 02/16/23 06/21/23 loratadine 10 mg tablet 10 mg PO DAILY 05/27/23 06/21/23 melatonin 5 mg tablet 5 mg PO BEDTIME PRN insomna 05/27/23 06/21/23 Previous Rx's ?Medication ?Instructions ?Recorded aripiprazole 5 mg tablet 5 mg PO DAILY #30 tabs 06/29/23 aripiprazole 2 mg tablet 2 mg PO DAILY PRN as directed #14 07/05/23 tabs atomoxetine 18 mg capsule 18 mg PO QAM #14 caps 07/05/23 (Strattera) dicyclomine 20 mg tablet 20 mg PO QID PRN abdominal pain 02/14/25 #12 tabs ondansetron 4 mg disintegrating 4 mg PO Q8H PRN nausea and 02/14/25 tablet vomiting #10 tabs Allergies Allergy/AdvReac Type Severity Reaction Status Date / Time No Known Allergies Allergy Unknown Verified 02/13/25 18:01 Review of Systems Review of Systems: Yes all other systems are reviewed and are negative Constitutional: Constitutional: Denies fatigue and Denies fever(s) Cardiovascular: Cardiovascular: Reports chest pain and Reports dyspnea Respiratory: Respiratory: Reports dyspnea Gastrointestinal: Gastrointestinal: Denies abdominal pain, Denies hematochezia, Reports diarrhea, Reports nausea and Reports vomiting Genitourinary: Genitourinary: Denies dysuria Endocrine: Endocrine: Denies fatigue PMFSH Past Medical History Attestation statement: The following information was validated with the patient. Medical History (Updated 02/14/25 @ 00:26 by BARBARA Casas) Arthritis Borderline personality disorder History of concussion Tourette syndrome IBS (irritable bowel syndrome) Surgical History Tubal ligation status Social History Social History Household Members: Children Household Members Other:: Daughter, Pieter, 16 y.o. Patient Tobacco Use Status: Current someday Tobacco user Tobacco use type: Cigarette Smoked in Last 30 Days: No Use of substances other than those prescribed or required for medical reasons: No Advance Directives: No Advance Directives Information Provided: No Do you have a plan to hurt others: No Plan Patient : No Physical Exam ED Vital Signs: Vital Signs - 24 hr 02/13/25 17:56 02/13/25 19:50 02/13/25 23:26 Temperature 96.6 F L 98.2 F 97.7 F Pulse Rate 84 74 69 Respiratory Rate 16 16 Blood Pressure 113/56 L 108/53 L 110/60 Pulse Oximetry 97 99 98 Oxygen Delivery Method Room Air Room Air Room Air BMI result Body Mass Index 22.9 Const Other: Alert well-appearing Orientation/consciousness: patient oriented x3 Resp Effort & Inspection: normal respiratory effort Cardio Other: Normal peripheral perfusion GI Other: Abdomen is soft, nondistended, generalized tenderness to palpation across lower abdomen without guarding Skin Other: Warm dry no rash Neuro General: patient oriented x3, gait normal, no focal motor deficits and CN's II-XI intact bilaterally Psych Other: Cooperative Course Course Course Narrative: RME, this is a rapid medical exam performed by Vince Pierce please refer to primary provider for complete H&P- 39 year old female presents for evaluation of chest, back, and abdominal pain for the last month but worse over the last 3 days. Plan for labs, UA. EKG was performed on arrival Medications Administered Discontinued Medications Generic Name Dose Route Start Last Admin Trade Name Freq PRN Reason Stop Dose Admin Dicyclomine HCl 20 mg 02/13/25 21:44 02/13/25 22:08 Dicyclomine Hcl 10 Mg Capsule PO 02/13/25 21:45 20 mg ONCE ONE Administration Sodium Chloride 1,000 mls @ 999 mls/hr 02/13/25 21:45 02/13/25 23:41 Ns IV 02/13/25 22:45 Infused .Q1H1M ALIZE Infusion Ketorolac Tromethamine 15 mg 02/13/25 21:44 02/13/25 22:08 Ketorolac Tromethamine 15 Mg/Ml Vial IVPUSH 02/13/25 21:45 15 mg ONCE ONE Administration Ondansetron HCl 4 mg 02/13/25 21:44 02/13/25 22:08 Ondansetron Hcl 4 Mg/2 Ml Vial IVPUSH 02/13/25 21:45 4 mg ONCE ONE Administration Medical Decision Making Medical Decision Making MDM Narrative: 39 year-old female with pmhx of ADHD, mood disorder, bipolar II disorder, tourette syndrome, cocaine use disorder, PTSD, and major depression who presents to the ED with multiple concerns. She states she has been having chest pain, SOB, low back pain, heartburn, bloating and abdominal pain that has been occurring on and off for 1 month. She describes the chest pain as burning and states the SOB only occurs with the chest pain. She reports 2 episodes of diarrhea since Tuesday. She is able to pass flatulence but states she does not have much. Denies vomiting, fever, chills, blood in stool, blood in urine. Denies recent hospitalization, use of antibiotics or travel. No sick contacts with similar symptoms. Problem: Psychiatric illness History: Per patient I have considered the following differential diagnoses: Diverticulitis, traveler's diarrhea, C diff, viral gastroenteritis, ACS, Plan: Patient here with numerous symptoms. In regard to the chest pain, ACS was considered, however the patient has no risk factors for coronary artery disease, her heart score is 0. EKG cardiac enzymes chest x-ray obtained. In regard to the abdominal pain, she has no risk factors for traveler's diarrhea or C diff, overall her abdominal exam is benign, obtaining a CT scan giving concurrent pain with her symptoms. We will be giving fluid , Toradol, dicyclomine and nausea medicine. I have independently reviewed the following tests: Labs: No leukocytosis, not anemic, no electrolyte abnormality, not , urine not infected, troponin negative EKG: Normal sinus rhythm, rate 81, nonspecific T-wave abnormalities noted inferior anterolateral leads, QTC 376 CT abdomen and pelvis:Findings: The lung bases are clear. Unremarkable gallbladder and solid organs. No urolithiasis. No bowel obstruction, pneumoperitoneum, or pneumatosis. No evidence of diverticulitis. Appendix is not visualized but there are no pericecal inflammatory changes. Rim enhancing fluid in the vagina may be normal fluid with surrounding mucosal enhancement versus abscess (best seen on sagittal image 65/129 and 68/129). Bilateral ovarian cysts measuring up to 1.6 cm on the right. Trace free fluid in the pelvis. No acute fracture. IMPRESSION: Rim enhancing fluid in the vagina may be normal fluid with surrounding mucosal enhancement versus abscess (best seen on sagittal image 65/129 and 68/129). No evidence of diverticulitis. In regard to the fluid within the vagina, the patient is not having any vaginal bleeding or drainage at this time. She has no leukocytosis, if she had a uterine abscess, she would be ill. Lab Data 02/13/25 18:16 02/13/25 18:16 Labs: Lab Results 02/13/25 02/13/25 Range/Units 18:16 22:05 WBC 9.7 (4.8-10.8) X10*3/uL RBC 4.18 L (4.20-5.50) X10*6/uL Hgb 13.2 (12.0-16.0) g/dl Hct 38.3 (37.0-47.0) % MCV 91.6 (80.0-98.0) fL MCH 31.6 (27.0-33.0) pg MCHC 34.5 (31.0-35.0) g/dl RDW 12.5 (11.0-16.0) % Plt Count 318 (160-400) X10*3/uL MPV 10.0 (9.4-12.3) fL Immature Gran % (Auto) 0.2 (0.0-0.4) % Neut % (Auto) 55.7 (45-73) % Lymph % (Auto) 35.9 (20-40) % [place] % (Auto) 6.7 (2-11) % Eos % (Auto) 1.2 (0-4) % Baso % (Auto) 0.3 (0-2) % Lymph # (Auto) 3.5 (1.2-4.9) X10*3/uL [place] # (Auto) 0.7 (0.1-1.2) X10*3/uL Eos # (Auto) 0.1 (0.0-0.4) X10*3/uL Baso # (Auto) 0.0 (0.0-0.2) X10*3/uL Abs Immat Gran (auto) 0.02 (0.00-0.03) X10*3/uL Absolute Neuts (auto) 5.4 (2.0-8.3) x10*3/uL Absolute Nucleated RBC 0.000 (0.0-0.012) X10*3/uL Nucleated RBC % (auto) 0.0 (0.0-0.2) /100WBC Sodium 140 (135-145) mmol/L Potassium 3.3 (3.3-5.1) mmol/L Chloride 108 (96-108) mmol/L Carbon Dioxide 26 (22-29) mmol/L Anion Gap 9 L (12-20) BUN 11 (9-16) mg/dL Creatinine 0.76 (0.5-1.4) mg/dL Estim Creat Clear Calc 77.8 Estimated GFR > 60 Random Glucose 98 (60-115) mg/dL Calcium 8.7 (8.4-10.2) mg/dL Total Bilirubin 0.5 (0.0-1.0) mg/dL AST 18 (5-31) U/L ALT 12 (0-31) U/L Alkaline Phosphatase 60 (39-117) U/L Troponin I High Sens < 2.7 (<3.5-17.0) ng/L Total Protein 7.3 (6.5-8.0) g/dL Albumin 4.2 (3.5-5.0) g/dL Lipase 30 (8-78) U/L Urine Color Yellow Urine Appearance Clear Urine pH 7.0 (5.0-9.0) Ur Specific [place] 1.015 (1.005-1.025) Urine Protein Negative (Neg-Trace) mg/dL Urine Glucose (UA) Negative (Negative) mg/dL Urine Ketones Negative (Negative) mg/dL Urine Blood Negative (Negative) Urine Nitrite Negative (Negative) Ur Leukocyte Esterase Negative (Negative) Urine RBC 0-2 (0-2) /HPF Urine WBC 0-5 (0-5) /HPF Ur Squamous Epith Cells 0-2 (0-2) /HPF Urine Bacteria None Seen (None Seen) Hyaline Casts 0-2 (0-2) /LPF Urine Test NEGATIVE (NEGATIVE) Influenza Type A (PCR) NEGATIVE (Negative) Influenza Type B (PCR) NEGATIVE (Negative) RSV RNA Qual (PCR) NEGATIVE (Negative) SARS-CoV-2 RNA (RT-PCR) NEGATIVE (Negative) Discharge Plan Discharge Clinical Impression: Viral gastroenteritis Patient Disposition: Home, Self-Care Instructions: Gastroenteritis (ED) Additional Instructions: All of your screening labs were normal, your urine is not infected. We obtained a cardiac enzymes secondary to your chest discomfort that was normal as well. There were no concerning changes on the EKG. The CT scan revealed that you have fluid in the vaginal canal, given you're having irregular menstrual cycles, you need to follow up with your vice president [employer], you require a transvaginal ultrasound as an outpatient, you may also require a uterine biopsy. I am providing you with a contact for our service, call tomorrow to schedule an appointment. Prescriptions: New dicyclomine 20 mg tablet 20 mg PO QID PRN (Reason: abdominal pain) Qty: 12 0RF ondansetron 4 mg tablet,disintegrating 4 mg PO Q8H PRN (Reason: nausea and vomiting) Qty: 10 0RF No Action loratadine 10 mg tablet 10 mg PO DAILY melatonin 5 mg Tablet 5 mg PO BEDTIME PRN (Reason: insomna) lamotrigine 200 mg tablet 200 mg PO DAILY aripiprazole 5 mg tablet 5 mg PO DAILY Qty: 30 0RF atomoxetine [Strattera] 18 mg capsule 18 mg PO QAM Qty: 14 0RF Rx Instructions: take 1 capsule daily in AM for one week, then increase to 2 capsules daily aripiprazole 2 mg tablet 2 mg PO DAILY PRN (Reason: as directed) Qty: 14 0RF Rx Instructions: in addition to 5 mg tablet (= 7mg/day) Referrals: Giovanni Wyatt MD [Physician, [facility]] Referral Note: Need for a gynecology service, having irregular cycles and bleeding. Print Language: Guamanian
[2025-02-13 18:35] LABS: MANUAL DIFF FLAG NO
[2025-02-13 18:37] LABS: Hematocrit 38.3 % (37.0-47.0); Hemoglobin 13.2 g/dl (12.0-16.0); Imm Gran Abs Auto 0.02 X10*3/uL (0.00-0.03); Imm Gran Pct Auto 0.2 % (0.0-0.4); Lymphocytes Absolute Auto 3.5 X10*3/uL (1.2-4.9); Mean Corpuscular HGB Conc 34.5 g/dl (31.0-35.0); Mean Corpuscular Hemoglobin 31.6 pg (27.0-33.0); Mean Corpuscular Volume 91.6 fL (80.0-98.0); NRBC Abs Auto 0.000 X10*3/uL (0.0-0.012); NRBC Pct Auto 0.0 /100WBC (0.0-0.2); Platelet Count 318 X10*3/uL (160-400); Red Blood Count 4.18 X10*6/uL (4.20-5.50); White Blood Count 9.7 X10*3/uL (4.8-10.8)
[2025-02-13 18:51] LABS: Alanine Aminotransferase 12 U/L (0-31); Albumin Level 4.2 g/dL (3.5-5.0); Alkaline Phosphatase 60 U/L (39-117); Anion Gap 9 (12-20); Aspartate Amino Transferase 18 U/L (5-31); Blood Urea Nitrogen 11 mg/dL (9-16); Calcium 8.7 mg/dL (8.4-10.2); Carbon Dioxide 26 mmol/L (22-29); Chloride 108 mmol/L (96-108); Creatinine Clr Calc Pharmacy 77.8; Estimated Glomerular Filt Rate > 60; Lipase 30 U/L (8-78); Potassium 3.3 mmol/L (3.3-5.1); Sodium 140 mmol/L (135-145); Total Protein 7.3 g/dL (6.5-8.0)
[2025-02-13 19:01] LABS: Troponin-I High Sensitivity < 2.7 ng/L (<3.5-17.0)
[2025-02-13 19:14] LABS: Resp Syncy Virus RNA Qual PCR NEGATIVE (Negative); SARS COV2 PCR INHOUSE NEGATIVE (Negative)
[2025-02-13 19:50] VITALS: BP 108/53; PULSE 74; RESP 16; TEMP 36.8; O2SAT 99
--- NOTE | 2025-02-13 21:46 | PC.NURSE ---
Patient walking to bathroom from stretcher independently with a steady gait. Patient has urine cup with her to give a urine sample as request from the provider.
--- NOTE | 2025-02-13 21:59 | PC.NURSE ---
20g IV placed in L AC. Patient tolerated well.
[2025-02-13 22:16] LABS: Appearance Urine Clear; Glucose Urine UA Negative (Negative); PH 7.0 (5.0-9.0); Specific Gravity - Urine 1.015 (1.005-1.025)
[2025-02-13 22:17] LABS: UPreg QC Valid YES
[2025-02-13 23:26] VITALS: BP 110/60; PULSE 69; TEMP 36.5; O2SAT 98
[2025-02-14] VITALS: BP 115/68; PULSE 66; RESP 17; TEMP 36.8; O2SAT 99
[2025-02-14 00:37] VITALS: BP 115/68; PULSE 66; RESP 17; TEMP 36.8; O2SAT 99
== END 2025-02-14 00:40 | disposition home or self-care (01) ==
PROVIDERS: Physician Assistant; Physician Assistant Medical; Emergency Provider Emergency Medicine; PCP Internal Medicine
DX: A08.4 Viral intestinal infection, unspecified (principal); R07.9 Chest pain, unspecified; K57.92 Diverticulitis of intestine, part unspecified, without perforation or abscess without bleeding; R06.02 Shortness of breath; M54.50 Low back pain, unspecified; R14.0 Abdominal distension (gaseous); R12 Heartburn; R19.7 Diarrhea, unspecified
CPT/HCPCS: 36415; 74177; 80053; 81001; 81025; 83690; 84484; 85025; 87637; 93005; 96361; 96374; 96375; 99284; 99285; J1885; J2405

== ENCOUNTER → 2025-02-13 17:19 | Outpatient (BNV) | payer MEDICAID, SELFPAY | PROVIDERS: Emergency Provider Emergency Medicine; PCP Internal Medicine; Visit Provider Internal Medicine Cardiovascular Disease | DX: R94.31 Abnormal electrocardiogram [ECG] [EKG] (principal); R07.9 Chest pain, unspecified | CPT/HCPCS: 93010 ==

== ENCOUNTER → 2025-02-13 21:44 | Outpatient (BNV) | payer MEDICAID, SELFPAY | PROVIDERS: Emergency Provider Emergency Medicine; PCP Internal Medicine; Visit Provider Radiology Diagnostic Radiology | DX: N83.201 Unspecified ovarian cyst, right side (principal) | CPT/HCPCS: 74177 ==

== ENCOUNTER 2025-06-17 08:45 | Outpatient (REF) | payer OTHER, SELFPAY ==
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
--- OUTSIDE RECORDS SUMMARY | 2025-06-12 23:59 | XMS_ITS | Continuity of Care Document ---
Author Organization [facility] Address [address] [place] [id number] Name Relationship Address Phone MEGHANN MEDELLINAMAR Personal Relationship Unknown Unavailable VIGNESH, BELLAMAR Personal Relationship Unknown Unavailable VIGNESH, BELLAMAR Personal Relationship Unknown Unavailable VIGNESH, BELLAMAR Personal Relationship Unknown Unavailable VIGNESH, BELLAMAR Personal Relationship Unknown Unavailable VIGNESH, BELLAMAR Personal Relationship Unknown Unavailable VIGNESH, BELLAMAR mother Unknown Unavaila ble Care Team Providers Care Digital Photo Printer Name Role Phone Erin Gonzales MD Primary Care Physician Encounter [facility] [place] Date(s): 05/13/25 - 06/12/25 [facility]/[address] [address]- Encounter Type: Triage Allergies, Adverse Reactions, Alerts [...] virus vaccine, inactivated 4 04/10/09 Gi emmy [id number] 12y+ bivalent booster vax 04/28/23 Given [id number] 12y+ bivalent booster vax 05/27/22 Recorded SARS-CoV-2 (COVID-19) mRNA BNT-162b2 vac 06/04/21 Recorded SARS-CoV-2 (COVID-19) mRNA BNT-162b2 vac 09/08/20 Recorded SARS-CoV-2 (COVID-19) mRNA BNT-162b2 vac 08/18/20 Recorded 1Location History: pharmacy 2Location History: [facility] pharmacy [facility] 3Admin Note: FLUZONE [...] Soft Stop, 05/12/25 4:56:00 PM EDT, Tablet, [facility]/pharmacy #[id number], Partial fill upon patient request if [...] Team Personnel Name: Erin Gonzales MD Position: [facility] Physician - Primary Care Member Role: PCP Address: [address] [place] [address] Telecom: Name: Marti Horner RN Position: [facility] OB RN Member Role: Primary Care Nurse Care Team Related Persons Name: NORY MEDELLIN Insurance Providers Guarantor name: JOSÉ MEDELLIN Health Plan Information #: 1 Payer: [facility] Payer Identifier: [id number] Member Number: [id number] Group Number: [id number] Subscriber Identifier: NA Relationship to Subscriber: self Coverage Type: Medicaid (Managed Care) Coverage Verification Date: NA Telecom: NA Address:
[2025-06-17 10:41] LABS: Hematocrit 39.0 % (37.0-47.0); Hemoglobin 13.0 g/dl (12.0-16.0); Mean Corpuscular HGB Conc 33.3 g/dl (31.0-35.0); Mean Corpuscular Hemoglobin 31.6 pg (27.0-33.0); Mean Corpuscular Volume 94.7 fL (80.0-98.0); NRBC Abs Auto 0.000 X10*3/uL (0.0-0.012); NRBC Pct Auto 0.0 /100WBC (0.0-0.2); Platelet Count 317 X10*3/uL (160-400); Red Blood Count 4.12 X10*6/uL (4.20-5.50); White Blood Count 6.6 X10*3/uL (4.8-10.8)
[2025-06-17 16:09] LABS: Bacterial Vaginosis PCR NEGATIVE (Negative); Candida Group PCR NOT DETECTED (Not Detect); Candida glab krusei PCR NOT DETECTED (Not Detect); Trichomonas vaginalis PCR NOT DETECTED (Not Detect)
[2025-06-17 16:39] LABS: CT PCR NOT DETECTED (Not Detect.); NG PCR NOT DETECTED (Not Detect.)
== END 2025-06-17 08:46 | disposition home or self-care (01) ==
LOC: HO.LAB 08:45
PROVIDERS: PCP Internal Medicine; Visit Provider Obstetrics & Gynecology
DX: N76.0 Acute vaginitis (principal); N93.9 Abnormal uterine and vaginal bleeding, unspecified; Z20.2 Contact with and (suspected) exposure to infections with a predominantly sexual mode of transmission; Z32.02 Encounter for pregnancy test, result negative; Z98.51 Tubal ligation status
CPT/HCPCS: 36415; 81025; 81515; 84443; 84702; 85027; 87491; 87591; 87626; 88175; 99202

== ENCOUNTER 2025-06-17 08:45 | Outpatient (AMB) | payer OTHER, SELFPAY ==
--- NOTE | 2025-06-17 08:46 | A.OFFVIS_ITS ---
Vital Signs 06/17/25 08:57 Height 5 ft 3 in Weight 115 lb BMI 20.4 BP 98/62 Intake Visit Reasons: irregular menses Lining Stamper Required: No Information Interpreted: non-clinical & clinical Accompanied by: Self / Same As Patient Allergies No Known Allergies Allergy (Unknown, Verified 06/17/25 09:00) Is last menstrual period known: Yes Last menstrual period: 06/15/25 HPI Comments Details: Presenting complaining of heavy menstrual cycles associated passage of blood clots and vaginitis on and off. The patient went to the emergency room on 02/13/2025 CT scan showed the following: IMPRESSION: Rim enhancing fluid in the vagina may be normal fluid with surrounding mucosal enhancement versus abscess (best seen on sagittal image 65/129 and 68/129). No evidence of diverticulitis. Last mammogram at [facility] according to patient was negative in 01/09, no records available [facility] Medical History Arthritis Borderline personality disorder History of concussion Tourette syndrome IBS (irritable bowel syndrome) Surgical History Tubal ligation status Family History Mother Diabetes Breast cancer Father HTN (hypertension) Brother HTN (hypertension) Paternal Uncle Prostate cancer Social History Household Members Other:: Daughter, Pieter, 16 y.o. 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 Sexually active: Yes Sexual orientation: Straight/Heterosexual Gender identity: Female Female Reproductive History Menstrual Date of last menstrual period: 06/15/25 Total pregnancies: 2 Full term: 2 Number of Living Children: 2 Review of Systems Const All systems reviewed & are unremarkable except as noted in HPI and below Card Reports as per HPI Resp Reports as per HPI GI Reports as per HPI and Reports no additional complaints Reports as per HPI Physical Exam Vital Signs: Last Vital Signs BP 98/62 06/17/25 08:57 BMI result Body Mass Index 20.4 Const General: cooperative, healthy appearing and comfortable Chest Chest palpation & inspection: normal inspection of the chest and normal palpati on of entire chest wall Breast/axilla inspection: normal inspection of the breasts and normal inspection of the axillae Breast/axilla palpation: normal palpation of the breasts, normal palpation of the axillae and no axillary lymphadenopathy Resp Effort & Inspection: normal respiratory effort Auscultation: clear to auscultation bilaterally Percussion: percussion normal Cardio Palpation: normal PMI Rate: regular rate Rhythm: regular rhythm Heart sounds: no murmurs and no rubs Peripheral pulses: Peripheral pulses 2+ throughout GI Inspection: Yes normal to inspection Palpation (GI): Soft to palpation, nontender, no guarding, not rigid and No hepatosplenomegaly present Percussion: Yes normal to percussion Auscultation: normal bowel sounds Rectal Exam - Female: deferred General: Yes bladder normal to palpation External Female Exam: No lesion Speculum Exam - Vagina: normal appearance of the vagina, normal palpation, normal vaginal discharge and not erythematous Speculum Exam - Cervix: normal appearance of the cervix and normal palpation Bimanual exam- vagina & uterus: normal bimanual exam, normal palpation, uterine size normal, bladder normal to palpation, consistency normal and normal palpation Bimanual Exam- Adnexa, other: normal adnexae, no masses and no tenderness Results AMB Test Urine AMB Test Urine Negative Last Edit by Vicenta Ayala CMA on 09:14 Assessment & Plan Assessment & Plan (1) Abnormal uterine bleeding (AUB): Code(s): N93.9 - Abnormal uterine and vaginal bleeding, unspecified Category: Medical Plan: Screening mammogram, Co testing done, GC and chlamydia taken CBC, TSH, HCG, and pelvic ultrasound ordered. Discussed with the patient the different causes of abnormal bleeding including thyroid disorders, uterine and ovarian pathology, endometrial hyperplasia, carcinoma and other potential causes. Discussed with the patient the work up including CBC (to r/o anemia), TSH, pelvic Ultrasound, endometrial biopsy to r/o endometrial pathology. All questions answered and the patient verbalized understanding. Instructed the patient to schedule an appointment for an endometrial biopsy in 2 weeks. (2) Vaginitis: Code(s): N76.0 - Acute vaginitis Category: Medical Plan: GC/CT with BV panel collected will check the results and treat accordingly Orders: Orders TSH reflex Free T4 Today N93.9 - Abnormal uterine and vaginal bleeding, unspecified Complete Blood Count no Diff Today N93.9 - Abnormal uterine and vaginal bleeding, unspecified AMB HCG Urine Test Today Z32.02 - Encounter for test, result negative HCG Quantitative Today N93.9 - Abnormal uterine and vaginal bleeding, unspecified US pelvic and transvaginal Today N93.9 - Abnormal uterine and vaginal bleeding, unspecified Medications: Discontinued atomoxetine (Strattera) take 1 capsule daily in AM for one week, then increase to 2 capsules daily Discontinued Reason: Patient no longer taking 18 mg PO QAM 14 caps 0RF dicyclomine Discontinued Reason: Patient Completed Course 20 mg PO QID PRN 12 tabs 0RF abdominal pain aripiprazole Discontinued Reason: Patient no longer taking 5 mg PO DAILY 30 tabs 0RF aripiprazole in addition to 5 mg tablet (= 7mg/day) Discontinued Reason: Patient no longer taking 2 mg PO DAILY PRN 14 tabs 0RF as directed ondansetron Discontinued Reason: Patient Completed Course 4 mg PO Q8H PRN 10 tabs 0RF nausea and vomiting Coding Level of Care Code New Pt Level 3 (98145) Diagnoses Abnormal uterine bleeding (AUB) N93.9 Vaginitis N76.0
[2025-06-17 08:57] VITALS: BP 98/62; BMI 20.4
--- OUTSIDE RECORDS SUMMARY | 2025-06-17 09:31 | XMS_ITS | Clinical Summary ---
Author Organization [facility] ity Address [address] [place] [address] Care Team Providers Care Timing Inspector Name Role Phone Unavailable Primary Care Provider Unavailabl e Social History Tobacco Use Types Packs/Day Years Used Date Smoking Tobacco: Never Assessed Comments Unknown Sex and Gender Information Value Date Recorded Sex Assigned at Not on file Legal Sex Female 4:57 AM EST Gender Identity Not on file Sexual Orientation Not on file Plan of Treatment Health Maintenance Due Date Last Done Comments Breast Cancer Screening 1984 DTaP,Tdap,and Td Vaccines (1 - Tdap) 09/23/2003 Hepatitis B Vaccines (1 of 3 - 19+ 3-dose series) 09/23/2003 Cervical Cancer Screening: P ap Smear 2005 HPV Vaccines (1 - 3-dose SCD M series) 09/23/2011 HIV Screening 06/20/2022 Hepatitis C Screening 06/20/2022 Social Influencers of Health Screening 06/20/2022 Depression Screening 07/18/2024 COVID-19 Vaccine (3 - 2024-2 6 season) 2025 09/08/2020, 08/18/2020 Influenza Vaccine (#1) 2025 RSV Immunization Adult Patients (1 - 1-dose 75+ series) 09/23/2059 HIB Vaccines Aged Out No longer eligi ble based on patient's age to complete this topic Hepatitis A Vaccines Aged Out No long er eligible based on patient's age to complete this topic IPV Vaccines Aged Out No longer eligi ble based on patient's age to complete this topic MMR Vaccines Aged Out No longer eligi ble based on patient's age to complete this topic Meningococcal ACWY Vaccine Aged Out N o longer eligible based on patient's age to complete this topic Meningococcal B Vaccine Aged Out No l onger eligible based on patient's age to complete this topic Pneumococcal Vaccine: Pediatrics (0 to 5 Years) and At-Risk Patients (6 to 49 Years) Aged Out No longer eligible b ased on patient's age to complete this topic RSV Immunization Patients Under 20 months Aged Out No longer eligible b ased on patient's age to complete this topic Varicella Vaccines Aged Out No longer eligible based on patient's age to complete this topic
== END 2025-06-17 09:35 | disposition home or self-care (01) ==
LOC: HO.HWS 08:45
PROVIDERS: PCP Internal Medicine; Visit Provider Obstetrics & Gynecology
DX: N93.9 Abnormal uterine and vaginal bleeding, unspecified (principal); N76.0 Acute vaginitis; Z32.02 Encounter for pregnancy test, result negative
CPT/HCPCS: 99203

== ENCOUNTER 2025-07-03 14:58 | Outpatient (REF) | payer OTHER, SELFPAY | END 2025-07-03 14:59 | disposition home or self-care (01) | LOC: HO.LNP 14:58 | PROVIDERS: PCP Internal Medicine; Visit Provider Obstetrics & Gynecology | DX: N93.9 Abnormal uterine and vaginal bleeding, unspecified (principal); Z32.02 Encounter for pregnancy test, result negative | CPT/HCPCS: 58100; 81025; 88305 ==

== ENCOUNTER 2025-07-03 14:58 | Outpatient (AMB) | payer OTHER, SELFPAY ==
--- OUTSIDE RECORDS SUMMARY | 2019-05-08 05:22 | XMS_ITS | Continuity of Care Document ---
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 Name Role Phone Unavailable Unavailable Unavailable Allergies, Adverse Reactions, Alerts Substance Reaction Status Criticality No Known Allergies Active No Inform ation Medications Medication Instructions Dosage Effective Dates (start - stop) Status Comments Xyzal 5 mg tablet take 1 tablet by ora l route every day in the evening 5 MG - Active Tylenol 325 mg capsule - Active montelukast 10 mg tablet take 1 tablet by oral route every day in the evening 10 MG - Active Ventolin HFA 90 mcg/actuation aerosol inhaler inhale 2 puff by inhalation route every 4 - 12 hours as needed 2 puff - Active Breo Ellipta 100 mcg-25 mcg/dose powder for inhalation inhale 1 puff by inhalation route every day at the same time each day 1.00 puff - Active Procedures Procedure Date PREV VISIT, NEW, AGE 18-39 Advance Directives Directive Yes / No Effective Date File Name No Information Encounters Encounter Description Practice Location Reason(s) For Visit Diagnoses Date Provider [facility], [address], [facility] [address], [id number], tel:[phone] 76 [facility] 801 No Information No Information PREV VISIT, NEW, AGE 18-39 [facility], [address], [facility] [address], [id number], tel:[phone] 33 [facility] 801 Annual Exam (chief complaint)P COS (chief complaint) 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) (routine) w/o abn findingsEncntr screen for infections w sexl mode of transmissScreening for malignant neoplasm of the cervixOvarian cyst, leftBirth control counseling No Information Family History Family Member Type Diagnosis Age At Onset Mother Problem (finding) hypertension Payers Payer name Insurance type Covered libertarian ID Leslie RANDHAWA (s) [id number] Social History Type Description Quantity Date Captured Comments Alcohol Use Details Unknown Caffeine Use Details Unknown Tobacco Use Status No Information Smoking Status No Information Sex Female Chief Complaint And Reason For Visit No Information History Of Present Illness Encounter Date Complaint History Of Prese nt Illness Annual Exam The patient stat es she uses none for control. Last LMP was 04/15/2019. Her menses is with normal flow with a frequency of every 28 days. Negative for menorrhagia. Negative for: breast discharge, breast lump(s) and breast pain. Positive for: breast self exam. Pertinent negatives include abnormal bleeding (hematology), urinary incontinence, urinary urgency and vaginal discharge. The patient does not use tobacco. Additional information: Pt presents today for a WWE. PT would like STI screeningPt c/o increase vaginal itching, no discharge LMP: 04/15/19BC: nonePAP: February 2018. PCOS Last menstrual p eriod was on 04/15/2019. The age of menarche onset was 12.Menstrual frequency is every 28 days. Pertinent negatives include galactorrhea.Additional information: Pt notes questional diagnosis of PCOS by first power shovel mechanic due to irregular cycles, other power shovel mechanic states no diagnosis. Pt has had multiple pelvic sonos, stable cyst in left, last ultrasound 2 years ago. Instructions Date Instruction Additional Infor mation Today we did a Pap s mear, a collection of cervical cells to assess your risk of cervical cancer, if there are cellular changes to a significant level, the lab will then also test for specific strains of the Human Papilloma Virus (HPV) that are associated with an increased risk of cervical cancer. We will call you with an abnormal results requiring further follow-up. We will publish your normal results to the patient portal. It takes at a minimum 7-10 business days to process PAP results, we will get that information to you as soon as the lab results it. If results are normal it is acceptable to wait 3 years until the next PAP smear, but we still like to see you every year for an annual visit and review of reproductive and general health and well being. Related to Screening for malignant neoplasm of the cervix Assessments Type Assessment Date No Information
--- OUTSIDE RECORDS SUMMARY | 2022-01-28 11:15 | XMS_ITS | Continuity of Care Document ---
Author Organization [facility] Address [address], [address] [place] [address] Phone Care Team Providers Care Director Of Scientific Research Name Role Phone [place] CARMONA, Pranawillem Unavailable Unavailable Allergies, Adverse Reactions, Alerts Substance Reaction Status Criticality No Known Allergies Active No Inform ation Medications Medication Instructions Dosage Effective Dates (start - stop) Status Comments Fioricet 50 mg-300 mg-40 mg capsule take 1 - 2 capsule by oral route every 4 hours as needed not to exceed 6 capsules per 24hrs 1.00-2.00 capsule - Active Proair Digihaler 90 mcg/actuation aerosol powder breath act, sensor inhale 2 puff by inhalation route every 4 - 6 hours as needed - Active Singulair 10 mg tablet take 1 tablet by oral route every day in the evening 10 MG - Active Xyzal 5 mg tablet take 1 tablet by oral route every day in the evening 5 MG - Active Problems Condition Type Effective Dates (start - stop) Clini loan Status Comments No Known Problems Procedures Procedure Date OFFICE/OUTPATIENT VISIT, EST TRANSVAGINAL US, NON-OB OFFICE/OUTPATIENT VISIT, EST TRANSVAGINAL US, NON-OB OFFICE/OUTPATIENT VISIT, EST TRANSVAGINAL US, NON-OB OB VISIT TRANSVAGINAL US, NON-OB OB VISIT OFFICE/OUTPATIENT VISIT, NEW Advance Directives Directive Yes / No Effective Date File Name No Information Encounters Encounter Description Practice Location Reason(s) For Visit Diagnoses Date Provider OFFICE/OUTPATIE NT VISIT, [facility], [address], [address], [place], [id number], [place] tel:[phone] [place] Office *post-op (chief complaint) Postop check 2021 [address]. [address], [address], [place], [place], [id number]. tel:[phone] OFFICE/OUTPATIE NT VISIT, [facility], [address], [address], [place], [id number], [place] tel:[phone] [place] REPEAT SONO (chief complaint) Missed 2021 Dioni Richter. [address], [address], [place], [place], [id number], [place]. tel:[phone] OFFICE/OUTPATIE NT VISIT, [facility], [address], [address], [place], [id number], [place] tel:[phone] [place] Missed (chief complaint) Vaginal bleeding 2021 Roberto Leonard. [address], [address], [place], [place], [id number], [place]. tel:[phone] [facility], [address], [address], [place], [id number], [place] tel:[phone] [place] *early confirmation (chief complaint) Amenorrhea 2021 [place] Pran[place]m. [address], [address], [place], [place], [id number]. tel:[phone] [facility], [address], [address], [place], [id number], [place] tel:[phone] [place] *early confirmation (chief complaint) Amenorrhea 2021 iMs Taylor. [address], [address], [place], [place], [id number]. tel:[phone] OFFICE/OUTPATIE NT VISIT, [facility], [address], [address], [place], [id number], [place] tel:[phone] [place] *infertility (chief complaint) PCOS (polycystic ovarian syndrome) 2021 [address] [place]. [address], [address], [place], [place], [id number], [place]. tel:[phone] Family History Family Member Type Diagnosis Age At Onset No Information Payers Payer name Insurance type Covered democrat ID Leslie ramos(s) Kuldip [id number] Social History Type Description Quantity Date Captured Comments Alcohol Use Details Unknown Caffeine Use Details Unknown Tobacco Use Status Current non-smoker Smoking Status Never smoker Sex Female Vital Signs Date / Time: Height Weight BMI Pulse Rate Blood Pressure Temperature Respiratory Rate Body Surface Area Head Circumference Head Circ. Percentile Wt./Mo. Percentile BMI percentile Pulse Ox Inhaled Ox 4:14 PM 63.00 in 109.316 kg (241.00 lbs) 42.6 9 kg/m eter (2) 124/82 mm[Hg] Chief Complaint And Reason For Visit From encounter dated '01/28/2022 16:15'. *post-op (chief complaint). Description: The patient reports no pain. The patient is using medication. Additional information: PT presents for D&C c/o cramping without bleeding using Tylenol for headache, no regular bowel movements.... EH. History Of Present Illness Encounter Date Complaint History Of Prese nt Illness Comments: Spotti ng and cramping resolved. no pain. No bowel/bladder issues. denies F/C N/V breast discharge. Would like to try to conceive immediately. *post-op The patient repo rts no pain. The patient is using medication. Additional information: PT presents for D&C c/o cramping without bleeding using Tylenol for headache, no regular bowel movements.... EH. Comments: Pt adm its to vaginal bleeding after taking cytotec on 12/17 and 12/18. Admit to only spotting today. NM REPEAT SONO PT HERE FOR REPE AT SONO..TF Missed PT here for MAB follow up, Pt went to [facility] ER, confirmed. Bleeding is better today. Bleeding started 11 am yesterday.LGT *early confirmation As sociated symptoms include breast tenderness, fatigue, nausea. Pertinent negatives include bleeding, spotting, vomiting. Additional information: Pt presents today for repeat sono/cp ...DEANGELO. Comments: Notes some nausea. *early confirmation LM P was 09/08/2021. Context: confirmed by home test on //. This is first . Associated symptoms include breast tenderness, fatigue, nausea. Pertinent negatives include vomiting. Additional information: PT c/o pelvic pain/cramping...LGT. Comments: never had bld testing for pcos; considering in near future; cycles fairly reg--ct *infertility Last menstrual p eriod was on 08/09/2021. Patient not . Presenting / Initial symptoms include infertility. The patient's relevant history is positive for obesity and polycystic ovary syndrome. The patient's relevant history is negative for anorexia nervosa, antiepileptic medication, diabetes mellitus, family history of delayed puberty, family history of polycystic ovary syndrome, hemochromatosis, history of prior D&C, hyperprolactinemia and hypertension.Additional information: Pt wants to discuss infertility and has been diagnosed with PCOS-AT. Instructions Date Instruction Additional Infor shaylee - recovering well- p atient asked about bASA to prevent SAB and reviewed that low risk so she can take it but no indication as she has only had one SAB- referral to [facility] at 1st trimester for possible incompetent cervix- cleared for sexual activity Related to Postop check -Thickened ES noted today-Referral for official sono to r/o POC given for confirmation-BHCG done today-Pt aware if continued retained POC, will proceed to D&C-D/w pt that will send to [facility] 1st TM of next for consultation due to concern of incompetent cervix with this Related to Missed confirmed, as with all , there is a moderate level of morbidity associated with care.Reviewed care, practice, hospital. Reviewed genetic screening and CF. patient accepts cffDNA and carrier testing. Patient advised on PNV + DHA.1) Morbid obesity, NSTs @ 34 wks, IG sonos, <20 lb weight gain2) AMA bASA starting 12 weeks3) FOB is sickle cell carrier- HGB Nicolasa to screen patient4) 4.5 cm simple cyst- reviewed removal in the event of CS and reviewed torsion precautions- reviewed B6+ Esthela supplements for N/V of Related to Amenorrhea Assessments Type Assessment Date assessment Postop check Mental Status Date Cognitive Assessment Orientation - Sigel ed to time, place, person, situation.
--- NOTE | 2025-07-03 15:08 | MHC.OFFVIS ---
Vital Signs 07/03/25 15:16 Height 5 ft 3 in Weight 115 lb BMI 20.4 BP 96/62 Intake Visit Reasons: EMB Reimbursement Representative Required: No Information Interpreted: non-clinical & clinical Radiation Officer: Radiation Officer Present (Vicenta DIOP) Accompanied by: Self / Same As Patient Allergies No Known Allergies Allergy (Unknown, Verified 07/03/25 15:18) Is last menstrual period known: Yes Last menstrual period: 06/17/25 HPI Comments Details: Presenting for EMB [facility] Medical History Arthritis Borderline personality disorder History of concussion Tourette syndrome IBS (irritable bowel syndrome) Surgical History Tubal ligation status Family History Mother Diabetes Breast cancer Father HTN (hypertension) Brother HTN (hypertension) Paternal Uncle Prostate cancer Social History Household Members Other:: Daughter, Pieter, 16 y.o. 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 Sexual orientation: Straight/Heterosexual Gender identity: Female Female Reproductive History Menstrual Age of Menarche: 10 Duration of menses: 3-5 days Date of last menstrual period: 06/17/25 control method: permanent sterilization Review of Systems Const All systems reviewed & are unremarkable except as noted in HPI and below Reports as per HPI and Reports no additional complaints GI Reports no additional complaints Reports no additional complaints Physical Exam Vital Signs: Last Vital Signs BP 96/62 07/03/25 15:16 BMI result Body Mass Index 20.4 Office Procedures Endometrial Biopsy Details: The patient was counseled regarding the indication and benefits of endometrial sampling to rule out endometrial pathology including not limited to endometrial hyperplasia or endometrial cancer and others; The alternatives (Either do nothing vs. hysteroscopy D&C) & the risks were discussed with the patient including but not limited: pain, uterine perforation, bleeding, infection, possible injury to bladder, bowel, ureter, possible need for blood transfusion with all its possible risks. The patient verbalized understanding all questions answered and signed consent. Urine test done in the office was negative The patient was placed into the dorsal lithotomy position; a speculum was inserted in the vagina. Using aseptic technique for the procedure, the cervix was cleansed with Betadine. The anterior lip of the cervix was grasped with a single tooth tenaculum. The uterus was sounded to 7 cm with a 4 mm Pipelle was used. Tissues samples were obtained and placed in formalin, in a patient labeled container and sent to the pathology department. At the end of the procedure, there was minimal bleeding noted The patient tolerated the procedure well and was discharged in good condition with the following instructions: Nothing in the vagina until the bleeding stops. No sex until the bleeding stops, to call if any of the following occurs: fever (>100.4), flu-like symptoms, abdominal pain, heavy bleeding, four smelling vaginal discharge. The patient was instructed to schedule a Follow up appointment in 2 weeks to discuss pathology results of the biopsy and treatment options. This note was generated with a voice recognition program. Some errors may have been overlooked during the review of this note. Sometimes these errors may affect the content or meaning of a given sentence. [id number] Biopsy Results AMB Test Urine AMB Test Urine Negative Last Edit by Vicenta Ayala CMA on 07/03/25 15:27 Assessment & Plan Assessment & Plan (1) Abnormal uterine bleeding (AUB): Code(s): N93.9 - Abnormal uterine and vaginal bleeding, unspecified Category: Medical Plan: EMB done, see procedure note Orders: Orders AMB HCG Urine Test Today Z32.02 - Encounter for test, result negative AMB Endometrial Biopsy Today N93.9 - Abnormal uterine and vaginal bleeding, unspecified Coding Level of Care Code Procedure Only Diagnoses Abnormal uterine bleeding (AUB) N93.9 CPT Codes Endometrial Biopsy - CPT: 52970-[id number] Biopsy ([id number])
[2025-07-03 15:16] VITALS: BP 96/62; BMI 20.4
--- OUTSIDE RECORDS SUMMARY | 2025-07-03 19:59 | XMS_ITS | Clinical Summary ---
Author Organization [facility] ity Address [address] [place] [address] Care Team Providers Care Plumbing Inspector Name Role Phone Unavailable Primary Care [...]
== END 2025-07-03 15:42 | disposition home or self-care (01) ==
LOC: HO.HWS 14:59
PROVIDERS: PCP Internal Medicine; Visit Provider Obstetrics & Gynecology
DX: Z32.02 Encounter for pregnancy test, result negative (principal); N93.9 Abnormal uterine and vaginal bleeding, unspecified
CPT/HCPCS: 58100